=== PATIENT | female | born 1980 | race Caucasian/White ===

== ENCOUNTER → 2024-10-28 14:24 | Outpatient (REF) | payer OTHER, SELFPAY | LOC: RAD 14:24 | PROVIDERS: ATTENDING PHYSICIAN Surgery; FAMILY PHYSICIAN Family Medicine | DX: R10.12 Left upper quadrant pain (principal); R10.32 Left lower quadrant pain; R19.4 Change in bowel habit; R19.00 Intra-abdominal and pelvic swelling, mass and lump, unspecified site | CPT/HCPCS: 74177; Q9967 ==